=== PATIENT | male | born 1975 | race Caucasian/White ===

== ENCOUNTER 2017-06-25 17:33 | Emergency (ER) | payer SELFPAY ==
[~2017-06-25] VITALS: Ht 182.9 cm; Wt 54.4 kg
[2017-06-25 17:35] VITALS: BP 151/69
--- NOTE | 2017-06-25 17:46 | Emergency Room Report ---
History of Present Illness General Chief Complaint: Behavioral Complaint Source: Patient (Garry Flores) Present Illness HPI 41 yo male presents to ER BIB ambulance presents to ER following attempted suicide. Patient reports he tried to cut his wrist with a piece of glass.. Patient reports he plans to hurt himself. Patient reports he does not plan to hurt anyone else. Patient being seen by psychiatrist Brian Escobedo in [place]; patient reports he is in [place] on vacation. Patient states he suffered a "traumatic emotional experience" recently while on vacation but would not state what event occurred.. Patient reports history of gastroparesis. States "gastroparesis is going to kill me." Patient reports inducing vomiting to alleviate gastroparesis pain. Patient denies fever, SOB, chest pain. Patient requesting fluids and medication for gastroparietal pain. Patient reports marijuana use; states he has a prescription. (Garry Flores) Allergies: Coded Allergies: No Known Allergies (Unverified , 06/25/17) Patient History Past Medical History: see triage record, psych hx Pertinent Family History: unable to obtain Reviewed Nursing Documentation: PMH: Agreed, PSxH: Agreed (Garry Flores) Review of Systems All Other Systems: negative except mentioned in HPI (Garry Flores) Physical Exam Vital Signs Date Time Temp Pulse Resp B/P (MAP) Pulse Ox O2 Delivery O2 Flow Rate FiO2 06/25/17 17:27 98.1 98 16 151/69 98 Room Air Sp02 EP Interpretation: reviewed, normal General Appearance: alert, GCS 15, non-toxic, moderate distress - sitting in bed, attempting to induce vomiting to relieve pain symptoms, thin Head: normocephalic, atraumatic Eyes: bilateral eye normal inspection, bilateral eye PERRL ENT: hearing grossly normal, normal pharynx, no angioedema, normal voice, moist mucus membranes, pharyngeal erythema Neck: full range of motion, supple/symm/no masses Respiratory: chest non-tender, lungs clear, normal breath sounds, speaking full sentences Cardiovascular #1: regular rate, rhythm Gastrointestinal: non tender, soft, no mass, non-distended, no guarding, no rebound Musculoskeletal: back normal, gait/station normal, normal range of motion, non- tender Neurologic: alert, oriented x3, responsive, motor strength/tone normal, sensory intact, speech normal Psychiatric: other - suicidial ideation Skin: no rash, warm/dry, palpation normal, abrasions - 3cm, linear, superficial , no active bleeding (Garry Flores) Medical Decision Making PA Attestation Dr. Malhotra is my supervising Physician whom patient management has been discussed with. (Garry Flores) Diagnostic Impression: Primary Impression: Suicidal thoughts Additional Impression: Abdominal pain Qualified Codes: R10.84 - Generalized abdominal pain ER Course Pt. presents to the ED BIB ambulance c/o suicide attempt. Ddx considered but are not limited to thoughts of suicide, substance abuse, depression, anxiety. Patient placed on suicide precautions, began psych workup. ORDERS: CBC, CMP Urine drug screen Serum alcohol Salicylate level Acetaminophen level Haloperidol Zofran Normal saline UA ED COURSE: Following administration of medication and fluids, patient reports feeling better and states he no longer has plans to hurt himself. Patient resting comfortably, in no acute distress, states he feels better. 2100 On re-evaluation patient reports he "still plans" to kill himself. Patient requesting fluids and pain medication for gastroparesis. Consult with Dr. Malhotra, patient placed on hold pending psychiatric evaluation in the morning. 2114 Patient care transferred to Dr. Morrison. Labs Test 06/25/17 18:10 White Blood Count 15.7 K/UL (4.8-10.8) Red Blood Count 5.67 M/UL (4.70-6.10) Hemoglobin 15.7 G/DL (14.2-18.0) Hematocrit 49.3 % (42.0-52.0) Mean Corpuscular Volume 87 FL (80-99) Mean Corpuscular Hemoglobin 27.7 PG (27.0-31.0) Mean Corpuscular Hemoglobin Concent 31.8 G/DL (32.0-36.0) Red Cell Distribution Width 12.6 % (11.6-14.8) Platelet Count 348 K/UL (150-450) Mean Platelet Volume 7.4 FL (6.5-10.1) Neutrophils (%) (Auto) 85.8 % (45.0-75.0) Lymphocytes (%) (Auto) 11.0 % (20.0-45.0) Monocytes (%) (Auto) 2.6 % (1.0-10.0) Eosinophils (%) (Auto) 0.1 % (0.0-3.0) Basophils (%) (Auto) 0.5 % (0.0-2.0) Urine Color Brown Urine Appearance Clear Urine pH 5 (4.5-8.0) Urine Specific [place] 1.025 (1.005-1.035) Urine Protein 1+ (NEGATIVE) Urine Glucose (UA) Negative (NEGATIVE) Urine Ketones 4+ (NEGATIVE) Urine Occult Blood Negative (NEGATIVE) Urine Nitrite Negative (NEGATIVE) Urine Bilirubin Negative (NEGATIVE) Urine Urobilinogen 4 MG/DL (0.0-1.0) Urine Leukocyte Esterase 1+ (NEGATIVE) Urine RBC 0-2 /HPF (0 - 0) Urine WBC 0-2 /HPF (0 - 0) Urine Squamous Epithelial Cells None /LPF (NONE/OCC) Urine Bacteria Occasional /HPF (NONE) Urine Mucus Moderate /LPF (NONE/OCC) Sodium Level 141 MMOL/L (136-145) Potassium Level 3.8 MMOL/L (3.5-5.1) Chloride Level 98 MMOL/L (98-107) Carbon Dioxide Level 26 MMOL/L (21-32) Anion Gap 17 mmol/L (5-15) Blood Urea Nitrogen 18 mg/dL (7-18) Creatinine 1.1 MG/DL (0.55-1.30) Estimat Glomerular Filtration Rate > 60 mL/min (>60) Glucose Level 174 MG/DL (74-106) Calcium Level 10.0 MG/DL (8.5-10.1) Total Bilirubin 0.8 MG/DL (0.2-1.0) Aspartate Amino Transf (AST/SGOT) 22 U/L (15-37) Alanine Aminotransferase (ALT/SGPT) 20 U/L (12-78) Alkaline Phosphatase 71 U/L (46-116) Total Protein 8.4 G/DL (6.4-8.2) Albumin 4.8 G/DL (3.4-5.0) Globulin 3.6 g/dL Albumin/Globulin Ratio 1.3 (1.0-2.7) Salicylates Level 3.1 ug/mL (2.8-20) Urine Opiates Screen Negative (NEGATIVE) Acetaminophen Level < 2 MCG/ML (10-30) Urine Barbiturates Screen Negative (NEGATIVE) Phencyclidine (PCP) Screen Negative (NEGATIVE) Urine Amphetamines Screen Negative (NEGATIVE) Urine Benzodiazepines Screen Negative (NEGATIVE) Urine Cocaine Screen Negative (NEGATIVE) Urine Marijuana (THC) Screen Positive (NEGATIVE) Serum Alcohol < 3 mg/dL (Garry Flores) ER Course Patient signed out to me. Initially patient came in because he said he felt suicidal. He said he felt this way because of his abdominal pain from gastroparesis. He slept for several hours and now is awake. He said he felt much better. He does not feel suicidal anymore. No particular plan. Wants to go home. We'll discharge home. I spoke with his mom, over the phone. She was concerned about him because he stopped taking his bipolar medication. He said that his medication is causing his gastroparesis to be worse. Is the reason why he stopped all of it. He is calm and courteous. Spoke with his mom over the phone. He is willing to start back on Abilify. I also prescribed Abilify for him. (WING KIM M.D.) Last Vital Signs Date Time Temp Pulse Resp B/P (MAP) Pulse Ox O2 Delivery O2 Flow Rate FiO2 06/25/17 17:35 98.1 98 16 151/69 98 Room Air (Garry Flores) Status: improved (WING KIM M.D.) Disposition: HOME, SELF-CARE Condition: Stable Scripts Aripiprazole* (ABILIFY*) 10 Mg Tablet 10 MG ORAL DAILY, #30 TAB Prov: WING KIM M.D. 06/26/17 Ondansetron Odt* (ZOFRAN ODT*) 4 Mg Tab.rapdis 4 MG ORAL Q6H Y for Nausea & Vomiting, #30 TAB Prov: WING KIM M.D. 06/26/17 Additional Instructions: Followup with your DrBailey in 7 days. Followup with your psychiatrist in 7 days. Return if worse. Garry Flores Jun 25, 2017 17:46 WING KIM M.D. Jun 26, 2017 03:17
[2017-06-25] MEDS ORDERED: Haloperidol 5mg/ml Inj IM ONE (18:00)
[2017-06-25 18:30] LABS: HEMATOCRIT 49.3 % (42.0-52.0); HEMOGLOBIN 15.7 G/DL (14.2-18.0); MEAN CORPUSCULAR VOLUME 87 FL (80-99); PLATELET COUNT 348 K/UL (150-450); RED BLOOD COUNT 5.67 M/UL (4.70-6.10); RED CELL DISTRIBUTION WIDTH 12.6 % (11.6-14.8); WHITE BLOOD COUNT 15.7 K/UL (4.8-10.8)
[2017-06-25 18:31] LABS: BASOPHILS % (AUTO) 0.5 % (0.0-2.0); EOSINOPHILS % (AUTO) 0.1 % (0.0-3.0); MONOCYTES % (AUTO) 2.6 % (1.0-10.0); NEUTROPHILS % (AUTO) 85.8 % (45.0-75.0)
[2017-06-25 18:39] LABS: ANION GAP 17 mmol/L (5-15); BLOOD UREA NITROGEN 18 mg/dL (7-18); CARBON DIOXIDE 26 MMOL/L (21-32); CHLORIDE 98 MMOL/L (98-107); CREATININE 1.1 MG/DL (0.55-1.30); POTASSIUM 3.8 MMOL/L (3.5-5.1); SODIUM 141 MMOL/L (136-145)
[2017-06-25 18:45] LABS: ALANINE AMINOTRANSFERASE 20 U/L (12-78); ALBUMIN 4.8 G/DL (3.4-5.0); ALBUMIN/GLOBULIN RATIO 1.3 (1.0-2.7); ALKALINE PHOSPHATASE 71 U/L (46-116); ASPARTATE AMINO TRANSFERASE 22 U/L (15-37); BILIRUBIN,TOTAL 0.8 MG/DL (0.2-1.0)
[2017-06-25 19:01] LABS: APPEARANCE,URINE CLEAR; BILIRUBIN, URINE NEGATIVE (NEGATIVE); COLOR,URINE BROWN; GLUCOSE, URINE (UA) NEGATIVE (NEGATIVE); KETONES,URINE 4+ (NEGATIVE); LEUKOCYTE ESTERASE ,URINE 1+ (NEGATIVE); NITRITE,URINE NEGATIVE (NEGATIVE); PH,URINE 5 (4.5-8.0); PROTEIN,URINE 1+ (NEGATIVE); UROBILINOGEN,URINE 4 MG/DL (0.0-1.0)
[2017-06-25 19:15] VITALS: BP 148/64
[2017-06-25 22:00] VITALS: BP 150/66
[2017-06-26 00:10] VITALS: BP 140/72
[2017-06-26 01:53] VITALS: BP 144/68
[2017-06-26] MEDS ORDERED: ZOFRAN ODT4 MG ORAL (03:17)
[2017-06-26 03:18] VITALS: BP 140/62
[2017-06-26] MEDS ORDERED: ABILIFY10 MG ORAL (03:37)
[2017-06-26 03:41] VITALS: BP 140/62
== END 2017-06-26 03:42 | disposition home or self-care (01) ==
LOC: EDBD 17:33 → EMR 17:40
DX: R45.851 Suicidal ideations (principal); R10.84 Generalized abdominal pain; K31.84 Gastroparesis; S60.819A Abrasion of unspecified wrist, initial encounter; X78.0XXA Intentional self-harm by sharp glass, initial encounter; Y92.9 Unspecified place or not applicable
CPT/HCPCS: 36415; 80053; 80307; 81003; 85025; 96361; 96372; 96374; 99284; G0480; J1630; J2405; 80329